=== PATIENT | female | born 1975 | race Caucasian/White ===

== ENCOUNTER 2018-03-04 08:19 | Outpatient (CLI) | payer OTHER | END 2018-03-04 15:49 | disposition home or self-care (01) | LOC: SONOGRAMA 08:19 | DX: N92.0 Excessive and frequent menstruation with regular cycle (principal); N84.0 Polyp of corpus uteri ==

== ENCOUNTER 2018-04-29 09:28 | Day surgery (SDC) | payer OTHER ==
[~2018-04-29 09:28] MED LIST: CALTRATE 600 +1 EACH PO
[2018-04-29] MEDS ORDERED: DOXYCYCLINE HY100 MG PO (14:54)
[2018-04-29] MEDS ORDERED: CODE1TAB37 PO (14:54)
== END 2018-04-29 17:20 | disposition home or self-care (01) ==
LOC: CIR.AMB 09:28
DX: D25.0 Submucous leiomyoma of uterus (principal); N84.0 Polyp of corpus uteri; N72 Inflammatory disease of cervix uteri

== ENCOUNTER 2022-07-03 08:51 | Day surgery (SDC) | payer OTHER ==
[~2022-07-03] VITALS: Ht 157.5 cm; Wt 53.1 kg
[~2022-07-03 08:51] MED LIST changes: +CALTRATE 600+D1 EAC1 PO; +CODE1TAB37 PO; +DOXYCYCLINE HY100 MG PO
[2022-07-03] MEDS ORDERED: NAPR500T14 PO (13:08)
[2022-07-03] MEDS ORDERED: MORGIDOX100 MG PO (13:08)
== END 2022-07-03 16:55 | disposition home or self-care (01) ==
LOC: CIR.AMB 08:51
PROVIDERS: ATTEND Obstetrics & Gynecology
DX: N84.0 Polyp of corpus uteri (principal); M85.80 Other specified disorders of bone density and structure, unspecified site